=== PATIENT | female | born 1990 | race Two or more races ===

== ENCOUNTER 2025-05-09 14:57 | Emergency (ER) | payer MEDICAID, SELFPAY ==
[2025-05-09 15:12] VITALS: BP 155/95; PULSE 80; RESP 18; TEMP 37.4; O2SAT 96; BMI 32.0
--- NOTE | 2025-05-09 15:14 | XR_ITS ---
Examination: Complete OB ultrasound, less than 14 weeks, transabdominal Date and time of exam: May 09, 2025 1519 hours INDICATIONS: Onset vaginal bleeding today Technique: Obstetrical ultrasound images less than 14 weeks performed via transabdominal imaging Findings: Uterus 7.8 cm intrauterine gestational sac 18 mm corresponds to 6 weeks 5 day gestational age No pole, no cardiac activity Right ovary 2.5 cm arterial flow Left ovary 2.7 cm arterial flow IMPRESSION: Intrauterine gestational sac corresponding to 6 weeks 5 day gestational age No pole, no cardiac activity Recommend short-term follow-up transvaginal pelvic sonography to exclude demise
--- NOTE | 2025-05-09 15:15 | PD.EDRME ---
Rapid Medical Screening Exam RME Arrival date/time: 05/09/25 14:57 35-year-old female approximately 2 months presents with concerns for pelvic pain and vaginal bleeding Chief Complaint: Vaginal Bleeding Time Seen by Provider: 05/09/25 15:09 Vital signs: Vital Signs Temperature 99.3 F 05/09/25 15:12 Pulse Rate 80 05/09/25 15:12 Respiratory Rate 18 05/09/25 15:12 Blood Pressure 155/95 H 05/09/25 15:12 Pulse Oximetry (%) 96 05/09/25 15:12 Oxygen Delivery Method Room Air 05/09/25 15:12
[2025-05-09 15:57] LABS: Collection Type, Urine Clean Catch
[2025-05-09 16:03] LABS: Basophils # (Auto) 0.1 Thou/mm3 (0.0-0.2); Basophils % (Auto) 1 % (0-2.5); Eosinophils # (Auto) 0.1 Thou/mm3 (0.0-0.5); Eosinophils % (Auto) 1 % (0-10); Hematocrit 38.1 % (36.0-46.0); Hemoglobin 13.6 g/dL (12.0-16.0); Immature Granulocytes Auto 0.05 Thou/mm3 (0.00-0.00); Lymphocytes # (Auto) 1.5 Thou/mm3 (1.0-4.8); Lymphocytes % (Auto) 13 % (10-50); Mean Corpuscular HGB Conc 35.7 g/dl (31.0-37.0); Mean Corpuscular Hemoglobin 31.6 pg (25.0-35.0); Mean Corpuscular Volume 89 fL (80-100); Monocytes # (Auto) 0.6 Thou/mm3 (0.0-0.8); Monocytes % (Auto) 5 % (0-12); Neutrophils # (Auto) 8.7 Thou/mm3 (1.8-7.7); Neutrophils % (Auto) 79 % (37-80); Nucleated Red Blood Cell # 0.00 Thou/mm3 (0.00-0.00); Nucleated Red Blood Cell % 0 /100 WBC (0); Platelet Count 363 Thou/mm3 (140-440); RDW Standard Deviation 40.6 fL (36.4-46.3); Red Blood Count 4.30 Miln/mm3 (4.00-5.20); White Blood Count 11.0 Thou/mm3 (3.6-11.0)
[2025-05-09 16:22] LABS: Bacteria,Urine Rare; Bilirubin,Urine Negative (Negative); Blood,Urine 3+ (Negative); Clarity,Urine Turbid (Clear/Hazy); Color,Urine Yellow (Lt Yel-Yel); Glucose, Urine Negative (Negative); Ketones,Urine Negative (Negative); Leukocyte Esterase,Urine Negative (Negative); Nitrite,Urine Negative (Negative); PH,Urine 6.0 (5.0-7.0); Protein,Urine 1+ (Neg - Trace); RBC,Urine 729 /hpf (0-3); Specific Gravity,Urine 1.026 (1.001-1.035); Squamous Epithelial Cell,Urine 6 /hpf (0-5); Urobilinogen,Urine Negative mg/dL (0.0-1.0); WBC,Urine 4 /hpf (0-5)
[2025-05-09 16:35] LABS: Alanine Aminotransferase 27 U/L (10-49); Albumin, Serum 4.4 gm/dL (3.5-5.0); Albumin/Globulin Ratio 1.4 (1.2-2.2); Alkaline Phosphatase 83 U/L (46-116); Anion Gap 9 (7-16); Aspartate Amino Transferase 24 U/L (0-34); BUN/Creatinine Ratio 10 Ratio (12-20); Bilirubin,Total 0.5 mg/dL (0.3-1.2); Blood Urea Nitrogen 6 mg/dL (9-23); Calcium 8.7 mg/dL (8.3-10.6); Calcium (Corrected) 8.7 mg/dL (8.5-10.1); Carbon Dioxide 23.9 mMol/L (20.0-31.0); Chloride 105 mMol/L (98-107); Creatinine (Component) 0.6 mg/dL (0.6-1.3); Estimated Creatinine Clearance 106.1 mL/min (>60); Globulin 3.2 gm/dL (2.3-3.5); Glucose 101 mg/dL (74-106); Osmolality,Calculated 273 (275-295); Potassium 4.1 mMol/L (3.4-5.1); Sodium 138 mMol/L (136-145); Total Protein 7.6 gm/dL (5.7-8.2); eGFR > 60 See Note
[2025-05-09 16:57] LABS: Beta HCG,Quantitative 17762 mIU/mL (<5.0)
[2025-05-09 17:52] VITALS: BP 129/89; PULSE 75; RESP 18; TEMP 36.9; O2SAT 97
--- NOTE | 2025-05-09 18:39 | EDNOTE_ITS ---
ED OB Contraction Preg RMI/HPI General Chief complaint: Vaginal Bleeding Stated complaint: VAGINAL BLEEDING, LMP 02/17/25 Time Seen by Provider: 05/09/25 15:09 Arrival date/time: 05/09/25 14:57 Limitations: no limitations RME / HPI RME / HPI Narrative: Patient is a 35-year-old female who believes she is between 2 to 7 months . She is , A1. She is here today with vaginal bleeding that star jenaro today. She denies any abdominal pain, nausea, vomiting. No fevers or chills. No near syncopal episodes. She has not had C-sections in the past. She denies any chronic medical illness. She has no other acute complaints or concerns. Related Data Allergies Allergy/AdvReac Type Severity Reaction Status Date / Time No Known Allergies Allergy Verified 05/09/25 14:59 Review of Systems Review of Systems Systems Reviewed: All systems reviewed, normal except as documented ED Exam General Limitations: Present no limitations General appearance: Present alert and in no apparent distress Head Head exam: Present atraumatic Eye Eye exam: Present normal appearance, PERRL and EOMI ENT ENT exam: Present normal exam, normal oropharynx and mucous membranes moist Neck Neck exam: Present normal inspection, full ROM and trachea midline Chest Chest inspection: Present normal inspection and symmetric chest wall rise Respiratory Respiratory exam: Present normal lung sounds bilaterally Cardiovascular Cardiovascular exam: Present regular rate, normal rhythm and normal heart sounds Abdominal Exam Abdominal exam: Present soft and normal bowel sounds Extremities Exam Extremities exam: Present normal inspection Back Exam Back exam: Present normal inspection and full ROM Neurological Exam Neurological exam: Present alert and oriented X3 Psychiatric Psychiatric exam: Present normal affect and normal mood Skin Skin exam: Present warm, dry, intact and normal color Course Quality Measures none Orders Category Date Time Status US OB <= 14 weeks fetus Stat Exams 05/09/25 15:14 Completed ABO/RH Type Stat Lab 05/09/25 15:55 Completed Beta HCG,Quantitative Stat Lab 05/09/25 15:55 Completed CBC Stat Lab 05/09/25 15:55 Completed Comprehensive Metabolic Panel Stat Lab 05/09/25 15:55 Completed UA [Urinalysis] Stat Lab 05/09/25 15:50 Completed Nitrofurantoin Macro [Macrobid] Med 05/09/25 18:33 Discontinued 100 mg PO X1 ONE Vital Signs Vital signs: Vital Signs Temperature 99.3 F 05/09/25 15:12 Pulse Rate 80 05/09/25 15:12 Respiratory Rate 18 05/09/25 15:12 Blood Pressure 155/95 H 05/09/25 15:12 Pulse Oximetry (%) 96 05/09/25 15:12 Oxygen Delivery Method Room Air 05/09/25 15:12 Vaginal Bleeding MDM Narrative MDM Narrative: Patient is a 35-year-old female who believes she is between 2 to 7 months . She is , A1. She is here today with vaginal bleeding that started today. She denies any abdominal pain, nausea, vomiting. No fevers or chills. No near syncopal episodes. She has not had C-sections in the past. She denies any chronic medical illness. She has no other acute complaints or concerns. On exam, patient is nontoxic-appearing and in no visible signs of distress. Vital signs are stable. Workup reveals no leukocytosis or anemia. There is no metabolic [place] [address]. Microscopic hematuria was noted on UA. An ultrasound was obtained which revealed a gestational sac that was estimated to be approximately 6 weeks, 5 days old, no heart rate was noted. This was discussed with the patient. She is at risk for miscarriage. Patient is placed on Macrobid. She will follow-up in clinic in 3 days for recheck. She agrees to have a low threshold for returning here for any worsening changes as needed. Patient data External records reviewed:: None Clinical information provided by:: patient and family Social determinants that could affect healthcare access:: none Patient has the following chronic illnesses:: N/A How is presenting disease/condition affected by chronic disease/condition?: uneffected by Evaluation data The following diagnostics were reviewed and interpreted by me:: lab results (No leukocytosis or metabolic derangement. Microscopic hematuria is present.) and radiology exam(s) (Gestational sac is present.) Lab and/or radiology exams considered but not ordered:: N/A Interpretation Summary: Microscopic hematuria Medications / Prescriptions Medications or Prescriptions considered but not ordered:: N./A Medication administrations:: Medication Administration History Discontinued Medications Nitrofurantoin Macrocrystals (Nitrofurantoin Macro 100 Mg Capsule) 100 mg PO X1 ONE Stop: 05/09/25 18:34 See above Consultations Consultation(s) initiated? (list below): No Diagnosis Vaginal Bleeding Differential Diagnosis: threatened , menometrorrhagia, incomplete and vaginal bleeding Most likely diagnosis given after review of the tests above:: Hematuria, threatened miscarriage Admission Indicated Admission indicated?: not indicated Admission Request Was there a request for admission?: No Disposition Plan Disposition Plan: Discharge Discharge Attestation Discharge Attestation: The patient and all family members were given an opportunity to ask questions and understood the discharge instructions. Discharge instructions specifically effects, indications for sooner follow up or return to the emergency department, and the expected course of current diagnosis. Patient condition: Stable Discharge Plan Plan Patient Disposition: HOME (Self Care) Patient condition on transfer: Stable Prescriptions/Referrals Referrals: No Primary/Family,Physician [Primary Care Provider] - In 1 week Problem List Clinical Impression: Vaginal bleeding, Miscarriage, threatened, early , UTI (urinary tract infection) Patient/Caregiver Discharge Instructions Education Materials: ED Dysfunctional Uterine Bleeding, ED Possible Miscarriage ... Additional Instructions: - Use Tylenol for comfort. Use provided antibiotic as prescribed. - Follow-up in clinic and have your hCG rechecked after 3 days[place] [address]. -Please return as needed for any worsening or emergent changes Print Language: Japanese Stand Alone Forms: [facility] Award Info., Patient Portal Info Letter
[2025-05-09] MEDS: NITROFURANTOIN MACRO 100 MG CAPSULE PO (19:09)
== END 2025-05-09 19:11 | disposition home or self-care (01) ==
PROVIDERS: Nurse Practitioner Primary Care; Emergency Provider Emergency Medicine
DX: O20.0 Threatened abortion (principal); O23.41 Unspecified infection of urinary tract in pregnancy, first trimester; N39.0 Urinary tract infection, site not specified; Z3A.01 Less than 8 weeks gestation of pregnancy
CPT/HCPCS: 36415; 76801; 80053; 81001; 84702; 85025; 86900; 86901; A9270

== ENCOUNTER 2025-05-10 16:29 | Emergency (ER) | payer MEDICAID, SELFPAY ==
[2025-05-10 16:42] VITALS: BP 157/93; PULSE 82; RESP 20; TEMP 36.9; O2SAT 98
--- NOTE | 2025-05-10 16:42 | XR_ITS ---
Examination: Complete OB ultrasound, less than 14 weeks, transabdominal Date and time of exam: May 10, 2025 1647 hours INDICATIONS: Vaginal bleeding beginning 2 days ago, intrauterine gestational sac no pole and no cardiac activity on ultrasound May 09, 2025 Technique: Obstetrical ultrasound images less than 14 weeks performed via transabdominal imaging Findings: Uterus 13.1 cm, endometrial stripe 0.6 cm No intrauterine gestation Right ovary 2.5 cm arterial flow Left ovary obscured by bowel gas IMPRESSION: Findings consistent with completed spontaneous
--- NOTE | 2025-05-10 16:43 | PD.EDRME ---
Rapid Medical Screening Exam RME Arrival date/time: 05/10/25 16:29 35-year-old female presents emergency department today for complaint of vaginal bleeding patient evaluated yesterday patient found to be 6 weeks no heart tones Chief Complaint: Vaginal Bleeding Vital signs: Vital Signs Temperature 98.5 F 05/10/25 16:42 Pulse Rate 82 05/10/25 16:42 Respiratory Rate 20 05/10/25 16:42 Blood Pressure 157/93 H 05/10/25 16:42 Pulse Oximetry (%) 98 05/10/25 16:42 Oxygen Delivery Method Room Air 05/10/25 16:42
[2025-05-10 17:16] LABS: Basophils # (Auto) 0.1 Thou/mm3 (0.0-0.2); Basophils % (Auto) 1 % (0-2.5); Eosinophils # (Auto) 0.2 Thou/mm3 (0.0-0.5); Eosinophils % (Auto) 2 % (0-10); Hematocrit 34.9 % (36.0-46.0); Hemoglobin 12.4 g/dL (12.0-16.0); Immature Granulocytes Auto 0.02 Thou/mm3 (0.00-0.00); Lymphocytes # (Auto) 1.4 Thou/mm3 (1.0-4.8); Lymphocytes % (Auto) 16 % (10-50); Mean Corpuscular HGB Conc 35.5 g/dl (31.0-37.0); Mean Corpuscular Hemoglobin 31.4 pg (25.0-35.0); Mean Corpuscular Volume 88 fL (80-100); Monocytes # (Auto) 0.7 Thou/mm3 (0.0-0.8); Monocytes % (Auto) 7 % (0-12); Neutrophils # (Auto) 6.7 Thou/mm3 (1.8-7.7); Neutrophils % (Auto) 74 % (37-80); Nucleated Red Blood Cell # 0.00 Thou/mm3 (0.00-0.00); Nucleated Red Blood Cell % 0 /100 WBC (0); Platelet Count 360 Thou/mm3 (140-440); RDW Standard Deviation 40.1 fL (36.4-46.3); Red Blood Count 3.95 Miln/mm3 (4.00-5.20); White Blood Count 9.0 Thou/mm3 (3.6-11.0)
[2025-05-10 17:55] LABS: Beta HCG,Quantitative 7723 mIU/mL (<5.0)
--- NOTE | 2025-05-10 22:02 | PD.EDVAGBL ---
ED OB Contraction Preg RMI/HPI General Chief complaint: Vaginal Bleeding Stated complaint: VAGINAL BLEEDING X YESTERDAY, CLOTS TODAY, LWR ABD Time Seen by Provider: 05/10/25 18:13 Arrival date/time: 05/10/25 16:29 RME / HPI RME / HPI Narrative: 05/10/25 16:29 35-year-old female presents emergency department today for complaint of vaginal bleeding patient evaluated yesterday patient found to be 6 weeks no heart tones ------ This section includes all my notes and documentations, including HPI, PE, and ED course. Hammad Dietz MD HPI: 35yo female who is ~6 weeks gestation here with vaginal bleeding since yesterday. Patient's vaginal bleeding significantly worsened today. LMP was 02/17/25. No other complaints reported. ROS: All negative except as documented in HPI. Physical Exam: General: Alert and oriented. No acute distress when remaining still. Eyes: Conjunctivae and lids clear. ENT: No nasal congestion. Neck: Supple. Heart: RRR. Lungs: No respiratory distress. Good air movement. No rhonchi, wheezing, rales. Abdomen: Soft and nontender. Normal bowel sounds. No distension. No rebound or guarding. Back: No CVA tenderness. Skin: Warm and dry. Neuro: Alert and oriented X 3. I reviewed all diagnostic test results. My review of the transvaginal US report is completed spontaneous . Blood tests unremarkable. At this point, diagnoses include complete miscarriage. Recommended expectant management. Based on my best medical judgment, made decision no further evaluation or treatment indicated at this time. Patient understands and agrees to the discharge instructions customized and printed, see below. Discharge Instructions from Dr. Dietz printed for you: 1. Unfortunately, you had a miscarriage. There is no baby in the uterus. 2. We are extremely sorry. 3. Expect to have more bleeding and cramping for several days. 4. See a private doctor on 05/12/2025 for recheck and further care. Ask to review all test results and official radiology reports, to make sure you receive all necessary follow-ups and monitoring. Ask for help until you are completely better. 5. Seek immediate medical care with intolerable pain, extremely heavy vaginal bleeding (soaking more than 3 pads per hour), or with any concerns. Hammad Dietz MD Related Data Allergies Allergy/AdvReac Type Severity Reaction Status Date / Time No Known Allergies Allergy Verified 05/10/25 16:34 Review of Systems Review of Systems Systems Reviewed: All systems reviewed, normal except as documented Past Medical History Social History SMOKING STATUS: Never smoker ED Exam Narrative Physical exam: As noted in HPI. Course Quality Measures none Orders Category Date Time Status US OB <= 14 weeks fetus Stat Exams 05/10/25 16:42 Completed Beta HCG,Quantitative Stat Lab 05/10/25 17:06 Completed CBC Stat Lab 05/10/25 17:06 Completed Vital Signs Vital signs: Vital Signs Temperature 98.5 F 05/10/25 16:42 Pulse Rate 82 05/10/25 16:42 Respiratory Rate 20 05/10/25 16:42 Blood Pressure 157/93 H 05/10/25 16:42 Pulse Oximetry (%) 98 05/10/25 16:42 Oxygen Delivery Method Room Air 05/10/25 16:42 Vaginal Bleeding MDM Narrative MDM Narrative: 35yo female who is ~6 weeks gestation here with vaginal bleeding since yesterday. Patient's vaginal bleeding significantly worsened today. LMP was 02/17/25. No other complaints reported. Patient data External records reviewed:: [facility] previous records (Per chart review, patient was seen here yesterday for a threatened miscarriage.) Clinical information provided by:: patient Social determinants that could affect healthcare access:: none Patient has the following chronic illnesses:: none How is presenting disease/condition affected by chronic disease/condition?: no chronic disease Evaluation data The following diagnostics were reviewed and interpreted by me:: lab results and radiology exam(s) Lab and/or radiology exams considered but not ordered:: none Interpretation Summary: I reviewed all diagnostic test results. My review of the transvaginal US report is completed spontaneous . Blood tests are unremarkable. Medications / Prescriptions Medications or Prescriptions considered but not ordered:: none Medication administrations:: none Consultations Consultation(s) initiated? (list below): No Diagnosis Vaginal Bleeding Differential Diagnosis: threatened and incomplete Most likely diagnosis given after review of the tests above:: Miscarriage Admission Indicated Admission indicated?: not indicated Explain why admission is indicated or not indicated:: With no condition needing emergent intervention, there was no indication for admission. Admission Request Was there a request for admission?: No Disposition Plan Disposition Plan: Discharge Discharge Attestation Discharge Attestation: The patient and all family members were given an opportunity to ask questions and understood the discharge instructions. Discharge instructions specifically effects, indications for sooner follow up or return to the emergency department, and the expected course of current diagnosis. Patient condition: Stable Discharge Plan Plan Patient Disposition: HOME (Self Care) Prescriptions/Referrals Referrals: No Primary/Family,Physician [Primary Care Provider] - In 1 week Problem List Clinical Impression: Miscarriage Patient/Caregiver Discharge Instructions Discharge Activity: activity as tolerated Education Materials: ED MISCARRIAGE Completed Additional Instructions: Discharge Instructions from Dr. Dietz printed for you: 1. Unfortunately, you had a miscarriage. There is no baby in the uterus. 2. We are extremely sorry. 3. Expect to have more bleeding and cramping for several days. 4. See a private doctor on 05/12/2025 for recheck and further care. Ask to review all test results and official radiology reports, to make sure you receive all necessary follow-ups and monitoring. Ask for help until you are completely better. 5. Seek immediate medical care with intolerable pain, extremely heavy vaginal bleeding (soaking more than 3 pads per hour), or with any concerns. Instrucciones de jordan de la Dra. Dietz impresas para usted: 1. Lamentablemente, sufri? un aborto espont?barney. No hay beb? en el ?tero. 2. Lo sentimos mucho. 3. Espere m?s sangrado y c?licos mendoza varios d?as. 4. Consulte con un m?dico particular el 12/05/2025 para giovanni revisi?n y atenci?n adicional. Solicite revisar todos los resultados de las pruebas y los informes radiol?gicos oficiales para asegurarse de recibir todos los controles y monitoreo necesarios. Solicite ayuda hasta que se recupere por completo. 5. Busque atenci?n m?dica inmediata si presenta dolor insoportable, sangrado vaginal extremadamente abundante (que empape m?s de 3 toallas sanitarias por hora) o si tiene alguna inquietud. Print Language: Croatian Stand Alone Forms: Grace Award Info., Patient Portal Info Letter
== END 2025-05-10 22:16 | disposition home or self-care (01) ==
PROVIDERS: Nurse Practitioner Primary Care; Emergency Provider Emergency Medicine
DX: O03.9 Complete or unspecified spontaneous abortion without complication (principal)
CPT/HCPCS: 36415; 76801; 84702; 85025; 99283